=== PATIENT | female | born 1985 | race Caucasian/White ===

== ENCOUNTER 2021-02-12 14:52 | Outpatient (CLI) | payer BC | END 2021-02-12 14:53 | disposition home or self-care (01) | LOC: CSHMAMMO 14:52 | PROVIDERS: ATTEND Internal Medicine Endocrinology, Diabetes & Metabolism | DX: M89.9 Disorder of bone, unspecified (principal); M81.0 Age-related osteoporosis without current pathological fracture | CPT/HCPCS: 77080 ==